=== PATIENT | male | born 1930 | race Caucasian/White ===

== ENCOUNTER → 2018-02-14 | Outpatient (CLI) | payer OTHER ==
--- NOTE | 2018-02-14 12:00 | PCVCIMAG ---
EXAM: BILATERAL CAROTID DUPLEX INDICATION: Carotid Occlusive Disease. FINDINGS: Doppler Measurements (centimeters per second): RIGHT: Peak CCA-54, Peak ECA-50, Diastolic ICA-7, Peak ICA-46, ICA/CCA Ratio-0.9. LEFT: Peak CCA-62, Peak ECA-54, Diastolic ICA-6, Peak ICA-55, ICA/CCA Ratio-0.9. RIGHT CAROTID: The carotid bulb has moderately severe plaque. The proximal internal carotid artery shows <40% stenosis. The common carotid artery shows no significant stenosis. The external carotid artery shows no significant stenosis. LEFT CAROTID: The carotid bulb has moderately severe plaque. The proximal internal carotid artery shows <40% stenosis. The common carotid artery shows no significant stenosis. The external carotid artery shows no significant stenosis. Antegrade flow in both vertebral arteries. IMPRESSION: <40% stenosis of the right internal carotid artery with moderately severe plaque. <40% stenosis of the left internal carotid artery with moderately severe plaque. LOC:[place] [id number]
== END | disposition home or self-care (01) ==
LOC: PCVCIMAG 11:19
PROVIDERS: ATTEND Internal Medicine Cardiovascular Disease
DX: I65.23 Occlusion and stenosis of bilateral carotid arteries (principal); R42 Dizziness and giddiness; R09.89 Other specified symptoms and signs involving the circulatory and respiratory systems; I77.9 Disorder of arteries and arterioles, unspecified
CPT/HCPCS: 93880